=== PATIENT | female | born 2000 | race Two or more races ===

== ENCOUNTER 2022-10-31 14:38 | Emergency (ER) | payer OTHER, SELFPAY ==
--- NOTE | 2022-10-31 14:51 | ED.GENADULT ---
HPI - General Adult General Chief complaint: Upper Respiratory Infection Stated complaint: sorethorat,cough Time Seen by Provider: 10/31/22 14:51 Source: patient Mode of arrival: ambulatory Limitations: no limitations History of Present Illness HPI narrative: 22-year-old female patient presents to the [facility] with complaints of sore throat that started yesterday. Patient states she has had fevers, chills, body aches and sweats. Patient states that the sore throat has gotten worse. Denies any abdominal pain, nausea, vomiting or diarrhea. Related Data Allergies Allergy/AdvReac Type Severity Reaction Status Date / Time No Known Allergies Allergy Verified 10/31/22 14:58 Review of Systems Review of Systems: CONSTITUTIONAL: Positive fever, chills, or sweats. EYES: Denies visual changes, redness, or discharge. ENT: Denies rhinorrhea, congestion, positive sore throat, or otalgia. CARDIOVASCULAR: Denies chest pain, palpitations, or edema. RESPIRATORY: Denies cough or dyspnea. GASTROINTESTINAL: Denies abdominal pain, nausea, vomiting, or diarrhea. GENITOURINARY: Denies dysuria or hematuria. SKIN: Denies rash or itching. MUSCULOSKELETAL: Denies back pain, joint pain, or myalgia. NEUROLOGIC: Denies headache, numbness, or weakness. PSYCHIATRIC: Denies anxiety or depression. [facility] Past Medical History Medical History (Updated 10/31/22 @ 15:22 by CARLOS Paulson) No significant past medical history Comments At the time of my signature I agree with nursing past medical history, surgical, social, and family history. There is no relevant family history pertinent to the presenting complaint. Exam Narrative: GENERAL: Well-appearing, well-nourished, and in no acute distress. HEAD: Normocephalic, atraumatic. EYES: PERRLA and EOMI. ENT: Nares clear, no rhinorrhea or epistaxis. Mucous membranes moist. posterior pharynx with 3+ tonsil enlargement and white exudate present on bilateral sides. NECK: Supple. No lymphadenopathy CHEST: Clear to auscultation. No respiratory distress. HEART: Regular rate and rhythm. No murmur heard. Normal peripheral pulses. ABDOMEN: Soft, nontender, nondistended, normal active bowel sounds. EXTREMITIES: Normal range of motion. No edema. SKIN: Warm, dry, no rash. NEURO: No focal deficits. Alert and oriented x3. Course Course Level of Care: Express Care Visit Vital Signs Vital signs: Vital Signs Temperature 37.1 C 10/31/22 14:58 Pulse Rate 132 H 10/31/22 14:58 Respiratory Rate 18 10/31/22 14:58 Blood Pressure 115/73 10/31/22 14:58 Pulse Oximetry 100 10/31/22 14:58 Oxygen Delivery Room Air 10/31/22 14:58 Temperature 37.1 C 10/31/22 14:58 Pulse Rate 132 H 10/31/22 14:58 Respiratory Rate 18 10/31/22 14:58 Blood Pressure 115/73 10/31/22 14:58 Pulse Oximetry 100 10/31/22 14:58 Oxygen Delivery Room Air 10/31/22 14:58 Vital signs reviewed Medical Decision Making MDM Narrative Medical decision making narrative: Plan care for patient is to discharge home with oral antibiotics for exudate of tonsillitis. Patient's strep was negative however given her symptoms I think is most likely that she will need antibiotics. No culture sent at this time. Differential Diagnosis Differential Diagnosis: differential diagnosis: Viral pharyngitis, pharyngitis, group A strep, infectious mononucleosis, gonococcal pharyngitis, exudative pharyngitis, oral candidiasis. Chronic allergies, postnasal drip, GERD, abscess formation, but glottitis, retropharyngeal abscess formation, or airway obstruction. Vital Signs Vital Signs: Vital Signs Temperature 37.1 C 10/31/22 14:58 Pulse Rate 132 H 10/31/22 14:58 Respiratory Rate 18 10/31/22 14:58 Blood Pressure 115/73 10/31/22 14:58 Pulse Oximetry 100 10/31/22 14:58 Oxygen Delivery Room Air 10/31/22 14:58 Temperature 37.1 C 10/31/22 14:58 Pulse Rate 132 H 10/31/22 14:58 Respiratory Rate 18 0
[2022-10-31 14:58] VITALS: BP 115/73; PULSE 132; RESP 18; TEMP 37.1; O2SAT 100
== END 2022-10-31 15:20 | disposition home or self-care (01) ==
PROVIDERS: Emergency Provider Nurse Practitioner Family
DX: J03.90 Acute tonsillitis, unspecified (principal)
CPT/HCPCS: 87880; 99203; G0463

== ENCOUNTER 2022-11-23 20:54 | Emergency (ER) | payer OTHER, SELFPAY ==
--- NOTE | ~2022-11-23 | XR_ITS ---
EXAMINATION: XR chest 2V DATE: 11/23/2022 22:24 INDICATION: Chest pain TECHNIQUE: PA and lateral views of the chest are obtained. COMPARISON: None available FINDINGS: The lungs are free of acute opacities. No pleural effusion or pneumothorax. The cardiomedia stinal silhouette is normal. The visualized bones and soft tissues are unremarkable. IMPRESSION: 1. No acute cardiopulmonary abnormality. Reviewed, dictated and finalized at location L.
--- NOTE | 2022-11-23 20:55 | ECG_ITS ---
Measurements Intervals [place] Rate: 77 P: 53 VA: 164 QRS: 83 QRSD: 94 T: 43 QT: 380 QTc: 431 Interpretive Statements SINUS RHYTHM NO PREVIOUS ECG AVAILABLE FOR COMPARISON Electronically Signed On 11-24-2022 15:57:15 CDT by Efrem Salmeron M.D.
[2022-11-23 21:07] VITALS: BP 127/76; PULSE 96; RESP 18; TEMP 37.1; O2SAT 98
[2022-11-23 21:30] LABS: Basophils Absolute Auto 0.1 K/mm3 (0.0-0.1); Basophils Percent Auto 0.5 % (0.2-1.2); Eosinophils Percent Auto 10.5 % (0-4.4); Hematocrit 41.3 % (37.0-47.0); Hemoglobin 14.1 g/dL (12.0-15.0); Immature Granulocyte Absolute 0.02 K/mm3 (0.00-0.031); Immature Granulocyte Percent A 0.2 % (0-0.5); Lymphocytes Absolute Auto 3.03 K/mm3 (0.9-3.2); Lymphocytes Percent Auto 33.2 % (18.3-44.2); Mean Corpuscular HGB Conc 34.1 g/dl (32-36); Mean Corpuscular Hemoglobin 30.7 pg (26-34); Mean Corpuscular Volume 89.8 fl (80-100); Mean Platelet Volume 9.3 fl (7.4-10.4); Monocytes Absolute Auto 0.7 K/mm3 (0.1-0.6); Monocytes Percent Auto 7.5 % (2.6-8.5); Neutrophils Absolute Auto 4.4 K/mm3 (1.3-6.7); Neutrophils Percent Auto 48.1 % (45.5-73.1); Platelet Count Result 305 k/mm3 (150-375); Red Cell Distribution Width 11.9 % (11.5-14.5); White Blood Count 9.1 K/mm3 (4.5-10.0)
[2022-11-23 21:41] LABS: Alanine Aminotransferase 21 U/L (6-35); Albumin Level 4.7 g/dL (3.5-5.1); Alkaline Phosphatase 51 U/L (38-126); Anion Gap 9 mmol/L (8-16); Aspartate Amino Transferase 25 U/L (14-36); Bilirubin,Total 0.6 mg/dL (0.2-1.3); Blood Urea Nitrogen 11 mg/dL (7-17); Calcium 8.9 mg/dL (8.4-10.2); Carbon Dioxide 27 mmol/L (22-30); Chloride 103 mmol/L (98-107); Estimated CRCL calculation 91 ml/min; Estimated Glomerular Filt Rate > 60; Glucose 98 mg/dL (65-110); Lipase 76 U/L (23-300); Potassium 3.8 mmol/L (3.4-5.0); Sodium 139 mmol/L (137-145)
[2022-11-23 21:43] LABS: Prothrombin Time 12.8 Seconds (11.1-14.7)
[2022-11-23 21:44] LABS: Partial Thromboplastin Time 31.1 SECONDS (22.3-36.8)
[2022-11-23 21:52] LABS: Troponin I < 0.012 ng/mL (0.000-0.034)
[2022-11-24] VITALS (10 sets, daily range): BP systolic 117–122; BP diastolic 75–87; PULSE 69–87; RESP 10–19; TEMP 37.6; O2SAT 98–100
[2022-11-24 02:35] LABS: Troponin I < 0.012 ng/mL (0.000-0.034)
[2022-11-24] MEDS: BELLADONNA ALK/PHENOB ELIX 10 ML, MAG HYDROX/ALUMINUM HYD/SIMETH 30 ML, LIDOCAINE HCL 2... PO (05:49)
--- NOTE | 2022-11-24 05:51 | PC.NURSE ---
Spoke with Dr. Dean about aspirin for patient. Per Dr. Dean disregard aspirin.
--- NOTE | 2022-11-24 06:10 | ED.GENADULT ---
HPI - General Adult General Chief complaint: Chest Pain Stated complaint: L sided CP Time Seen by Provider: 11/24/22 05:34 History of Present Illness HPI narrative: Patient is a [id number]- female who presents emergency department with chief complaint of chest pain patient reports that she started having some pain in the left anterior chest around 1 PM patient states that she started having some episodes of epigastric discomfort that would radiate up into her chest. Patient states that when she was driving she felt as though she was getting lightheaded and decided to mold puller. Patient states that the pain has improved significantly since she is arrived in the emergency department is still there at this point. Patient reports no significant past medical history Related Data Home Medications Medication Instructions Recorded Confirmed Control 1 tablet PO DAILY 10/31/22 10/31/22 Allergies Allergy/AdvReac Type Severity Reaction Status Date / Time No Known Allergies Allergy Verified 10/31/22 14:58 Review of Systems Review of Systems: A 10 system review of systems was completed on the patient and is negative except for what is stated in the HPI. Nursing and ancillary documentation was reviewed. [facility] Past Medical History Medical History No significant past medical history Exam Narrative: GENERAL: Well-appearing, well-nourished, and in no acute distress. HEAD: Normocephalic, atraumatic. EYES: PERRLA and EOMI. ENT: Nares clear, no rhinorrhea or epistaxis. Mucous membranes moist. NECK: Supple. CHEST: Clear to auscultation. No respiratory distress. HEART: Regular rate and rhythm. No murmur heard. Normal peripheral pulses. ABDOMEN: Soft, nontender, nondistended, normal active bowel sounds. EXTREMITIES: Normal range of motion. No edema. SKIN: Warm, dry, no rash. NEURO: No focal deficits. Alert and oriented x3. PSYCH: Normal mood and affect. Course Vital Signs Vital signs: Vital Signs Temperature 37.1 C 11/23/22 21:07 Pulse Rate 96 11/23/22 21:07 Respiratory Rate 18 11/23/22 21:07 Blood Pressure 127/76 11/23/22 21:07 Pulse Oximetry 98 11/23/22 21:07 Oxygen Delivery Room Air 11/23/22 21:07 Temperature 37.6 C H 11/24/22 04:53 Pulse Rate 79 11/24/22 05:46 Respiratory Rate 10 L 11/24/22 05:46 Blood Pressure 122/83 11/24/22 05:15 Pulse Oximetry 100 11/24/22 05:46 Oxygen Delivery Room Air 11/24/22 04:49 Medical Decision Making MDM Narrative Medical decision making narrative: Differential diagnosis includes gastroesophageal reflux disease, gastritis, ACS, angina EKG interpreted by me is sinus rhythm rate of [address] elevation or ST depression Laboratory studies were obtained which were within normal limits normal CBC normal set of electrolytes including liver enzymes troponin was negative for 2 sets lipase was normal. Chest x-ray showed no evidence of focal infiltrate or widened mediastinum. No evidence of pneumothorax. Patient received a GI cocktail in the emergency department and is feeling substantially better and her discomfort is almost completely resolved. Given the patient's age and risk factors patient has a heart score of 0 Patient will be discharged home started on a PPI and instructed to follow-up with her primary care provider Vital Signs Vital Signs: Vital Signs Temperature 37.1 C 11/23/22 21:07 Pulse Rate 96 11/23/22 21:07 Respiratory Rate 18 11/23/22 21:07 Blood Pressure 127/76 11/23/22 21:07 Pulse Oximetry 98 11/23/22 21:07 Oxygen Delivery Room Air 11/23/22 21:07 Temperature 37.6 C H 11/24/22 04:53 Pulse Rate 79 11/24/22 05:46 Respiratory Rate 10 L 11/24/22 05:46 Blood Pressure 122/83 11/24/22 05:15 Pulse Oximetry 100 11/24/22 05:46 Oxygen Delivery Room Air 11/24/22 04:49 Lab Data 11/23/22 21:24 11/23/22
== END 2022-11-24 06:39 | disposition home or self-care (01) ==
PROVIDERS: Emergency Provider Emergency Medicine
DX: R07.89 Other chest pain (principal)
CPT/HCPCS: 36415; 71046; 80053; 83690; 84484; 85025; 85610; 85730; 93005; 99284; A9270

== ENCOUNTER 2022-12-19 19:19 | Emergency (ER) | payer OTHER, SELFPAY ==
--- NOTE | 2022-12-19 19:27 | ED.GENADULT ---
HPI - General Adult General Chief complaint: Upper Respiratory Infection Stated complaint: . Time Seen by Provider: 12/19/22 19:27 Source: patient Mode of arrival: ambulatory Limitations: no limitations History of Present Illness HPI narrative: 22-year-old female patient presents to the [facility] with complaints of fever, left-sided lymph node swelling, fatigue and just overall not feeling well. [place] and was concerned about the lymph node swelling they states that they were not worried about it and that it would go away with time. Patient states that the next day she started spiking fevers however she states she started noticing symptoms about a week ago. Patient states she was diagnosed with strep about 2 months ago. Denies any abdominal pain, nausea, vomiting or diarrhea. Patient states she has been alternating Tylenol and ibuprofen to help keep the fever down. Related Data Home Medications Medication Instructions Recorded Confirmed Control 1 tablet PO DAILY 10/31/22 12/19/22 Allergies Allergy/AdvReac Type Severity Reaction Status Date / Time No Known Allergies Allergy Verified 12/19/22 19:44 Review of Systems Review of Systems: CONSTITUTIONAL: Positive fever, body aches and chills, positive sweats. EYES: Denies visual changes, redness, or discharge. ENT: Denies rhinorrhea, congestion, positive sore throat, positive bilateral otalgia. positive left-sided lymph node swelling and tenderness CARDIOVASCULAR: Denies chest pain, palpitations, or edema. RESPIRATORY: Denies cough or dyspnea. GASTROINTESTINAL: Denies abdominal pain, nausea, vomiting, or diarrhea. GENITOURINARY: Denies dysuria or hematuria. SKIN: Denies rash or itching. MUSCULOSKELETAL: Denies back pain, joint pain, or myalgia. NEUROLOGIC: Denies headache, numbness, or weakness. PSYCHIATRIC: Denies anxiety or depression. [facility] Past Medical History Medical History No significant past medical history Comments At the time of my signature I agree with nursing past medical history, surgical, social, and family history. There is no relevant family history pertinent to the presenting complaint. Exam Narrative: GENERAL: ill-appearing, well-nourished, and in no acute distress. patient is warned of the touch and sweaty. HEAD: Normocephalic, atraumatic. EYES: PERRLA and EOMI. ENT: Nares clear, no rhinorrhea or epistaxis. Mucous membranes moist. posterior pharynx with 2 to 3+ tonsillar enlargement, erythema and white exudates noted on bilateral sides. NECK: Supple. Bilateral Cervical lymphadenopathy CHEST: Clear to auscultation. No respiratory distress. HEART: Regular rate and rhythm. No murmur heard. Normal peripheral pulses. ABDOMEN: Soft, nontender, nondistended, normal active bowel sounds. EXTREMITIES: Normal range of motion. No edema. SKIN: Warm, dry, no rash. NEURO: No focal deficits. Alert and oriented x3. Course Course Level of Care: Express Care Visit Vital Signs Vital signs: Vital Signs Temperature 37.1 C 12/19/22 19:34 Pulse Rate 134 H 12/19/22 19:34 Respiratory Rate 18 12/19/22 19:34 Blood Pressure 124/80 12/19/22 19:34 Pulse Oximetry 97 12/19/22 19:34 Oxygen Delivery Room Air 12/19/22 19:34 Temperature 37.1 C 12/19/22 19:34 Pulse Rate 134 H 12/19/22 19:34 Respiratory Rate 18 12/19/22 19:34 Blood Pressure 124/80 12/19/22 19:34 Pulse Oximetry 97 12/19/22 19:34 Oxygen Delivery Room Air 12/19/22 19:34 Vital signs reviewed. Medical Decision Making MDM Narrative Medical decision making narrative: notified patient that due to her exam it does appear that she has an obvious stroke strep throat infection. We will discharge her home with oral antibiotics for the infection she needs to continue taking the Tylenol and Motrin for pain and fevers. Patient verb
[2022-12-19 19:34] VITALS: BP 124/80; PULSE 134; RESP 18; TEMP 37.1; O2SAT 97
== END 2022-12-19 19:49 | disposition home or self-care (01) ==
PROVIDERS: Emergency Provider Nurse Practitioner Family
DX: J02.9 Acute pharyngitis, unspecified (principal)
CPT/HCPCS: 99213; G0463

== ENCOUNTER 2022-12-22 09:38 | Inpatient (IN) | payer OTHER, SELFPAY ==
[2022-12-22] VITALS (45 sets, daily range): BP systolic 93–139; BP diastolic 51–89; PULSE 92–129; RESP 13–29; TEMP 36.9–37.4; O2SAT 97–100; BMI 27.0
--- NOTE | ~2022-12-22 | XR_ITS ---
EXAMINATION: XR chest 1V portable DATE: 12/22/2022 12:10 INDICATION: Cough. Fever. TECHNIQUE: A single frontal view of the chest was obtained. COMPARISON: Chest 2 views 11/23/2022 FINDINGS: The chest demonstrates clear lungs without pneumonia, pleural effusion, or pneumothorax. Th e heart size is normal. IMPRESSION: 1. No acute cardiopulmonary disease. Reviewed, dictated and finalized at location A.
[2022-12-22 10:35] LABS: Influenza A QL RT-PCR Negative (Negative); Influenza B QL RT-PCR Negative (Negative); SARS-CoV-2 RNA PCR Negative (Negative)
[2022-12-22] MEDS: KETOROLAC 30 MG/ML VIAL (*BKC) IV PUSH (11:54)
[2022-12-22] MEDS: PROCHLORPERAZINE EDISYLATE 10 MG/2 ML VIAL IV PUSH (11:54)
[2022-12-22] MEDS: diphenhydrAMINE HCl INJ 50 MG/ML VIAL 25 MG IV PUSH (11:55)
[2022-12-22] MEDS: SODIUM CHLORIDE 0.9% IV 1,000 ML 999 ML IV CONT ×2 (11:55→13:44)
[2022-12-22 12:13] LABS: Basophils Percent Auto 0.3 % (0.2-1.2); Hematocrit 37.5 % (37.0-47.0); Hemoglobin 12.7 g/dL (12.0-15.0); Immature Granulocyte Absolute 0.08 K/mm3 (0.00-0.031); Immature Granulocyte Percent A 0.5 % (0-0.5); Lymphocytes Absolute Auto 1.35 K/mm3 (0.9-3.2); Lymphocytes Percent Auto 8.8 % (18.3-44.2); Mean Corpuscular HGB Conc 33.9 g/dl (32-36); Mean Corpuscular Hemoglobin 29.9 pg (26-34); Mean Corpuscular Volume 88.2 fl (80-100); Mean Platelet Volume 9.3 fl (7.4-10.4); Monocytes Absolute Auto 1.3 K/mm3 (0.1-0.6); Monocytes Percent Auto 8.6 % (2.6-8.5); Neutrophils Absolute Auto 12.5 K/mm3 (1.3-6.7); Neutrophils Percent Auto 81.8 % (45.5-73.1); Platelet Count Result 231 k/mm3 (150-375); Red Blood Count 4.25 M/mm3 (4.2-5.4); Red Cell Distribution Width 11.7 % (11.5-14.5); White Blood Count 15.3 K/mm3 (4.5-10.0)
[2022-12-22 12:16] LABS: Lactic Acid Reflex 0.8 mmol/L (0.7-2.0); Lipase 70 U/L (23-300)
[2022-12-22 12:17] LABS: Alanine Aminotransferase 19 U/L (6-35); Albumin Level 4.1 g/dL (3.5-5.1); Alkaline Phosphatase 57 U/L (38-126); Anion Gap 7 mmol/L (8-16); Aspartate Amino Transferase 21 U/L (14-36); Bilirubin,Total 0.7 mg/dL (0.2-1.3); Blood Urea Nitrogen 5 mg/dL (7-17); Calcium 8.3 mg/dL (8.4-10.2); Carbon Dioxide 26 mmol/L (22-30); Chloride 103 mmol/L (98-107); Estimated CRCL calculation 102 ml/min; Estimated Glomerular Filt Rate > 60; Glucose 119 mg/dL (65-110); Potassium 3.9 mmol/L (3.4-5.0); Sodium 136 mmol/L (137-145)
[2022-12-22 12:17] LABS: Appearance Urine Clear (Clear); Bilirubin Urine Negative (Negative); Blood Urine Negative (Negative); Color Urine Yellow (Yellow); Glucose Urine UA Negative (Negative); Ketones Urine Negative (Negative); Leukocyte Esterase Ur Negative LEU/UL (Negative); Nitrate Urine Negative (Negative); Protein Urine Negative (Negative); Specific Grav Ur 1.006 (1.001-1.035); Urobilinogen Urine 0.2 mg/dL (<2.0)
[2022-12-22 12:19] LABS: Monoscreen Negative (Negative); Negative Monotest Control Negative (Negative); Positive Monotest Control Positive (Positive)
[2022-12-22 12:31] LABS: Strep Group A RT-PCR NOT DETECTED (Negative)
[2022-12-22 12:32] LABS: Add Urine Microscopic? NO
--- NOTE | 2022-12-22 13:15 | ED.FEVER ---
HPI - Fever General Chief Complaint: Fever <Rosette Potter PA-C - Last Filed: 12/22/22 19:06> Stated Complaint: high HR <ZAFAR Upton Last Filed: 12/22/22 19:06> Time Seen by Provider: 12/22/22 11:05 <Rosette Potter PA-C - Last Filed: 12/22/22 19:06> History of Present Illness HPI Narrative: 22-year-old female who reports to the emergency department for evaluation of tachycardia, fever, sore throat, frontal headache and an enlarged lymph node to the left anterior aspect of her neck. Pt states he is ago, she noticed a lump to the left anterior aspect of her neck but was feeling fine. States 2 days later, her heart rate increased to the 120s, she then went to her primary care provider for evaluation, did not receive a dx per patient, and was then sent home. Patient reports 3 days ago, she went to a local urgent care and was given Augmentin for pharyngitis which she has been taking since. States yesterday, her heart rate went up to the 130s therefore she went to [facility] and had a full work-up and CT scan of the neck and received IV antibiotics. Patient was discharged home with a diagnosis of lymphadenitis, prescribed steroids and [place]. Patient states she has not filled her prescriptions today but came to [place] due to a heart rate in the 120s this morning. Patient reports she talk to the nursing hotline who advised her to come to the emergency department for evaluation. She reports initial growth of the lymph node in her neck last week, however it has not grown in the last few days. She reports pain with swallowing, fatigue, fevers ranging from 100-103, mild intermittent cough. She denies difficulty breathing, chest pain, SOB, n/v/d, hemoptysis. <ZAFAR Upton Last Filed: 12/22/22 19:06> Related Data Home Medications: Home Medications Medication Instructions Recorded Confirmed Control 1 tablet PO DAILY 10/31/22 12/19/22 <ZAFAR Upton Last Filed: 12/22/22 19:06> Allergies/Adverse Reactions: Allergies Allergy/AdvReac Type Severity Reaction Status Date / Time No Known Allergies Allergy Verified 12/22/22 18:41 <Rosette Potter PA-C - Last Filed: 12/22/22 19:06> Review of Systems Review of Systems: CONSTITUTIONAL: Denies fever, chills EYES: Denies visual changes, redness, or discharge. ENT: See HPI CARDIOVASCULAR: Denies chest pain, palpitations, or edema. RESPIRATORY: Denies cough or dyspnea. GASTROINTESTINAL: Denies abdominal pain, nausea, vomiting, or diarrhea. GENITOURINARY: Denies dysuria or hematuria. SKIN: Denies rash or itching. MUSCULOSKELETAL: Denies back pain, joint pain, or myalgia. NEUROLOGIC: Denies headache, numbness, dizziness, or weakness. PSYCHIATRIC: Denies anxiety or depression. <Rosette Potter PA-C - Last Filed: 12/22/22 19:06> [facility] Past Medical History Medical History: Medical History (Updated 12/22/22 @ 23:17 by Chely Nice PA-C) No significant past medical history <Rosette Potter PA-C - Last Filed: 12/22/22 19:06> Surgical History Surgical History: Surgical History (Updated 12/22/22 @ 23:14 by Chely Nice PA-C) No history of previous surgery <Rosette Potter PA-C - Last Filed: 12/22/22 19:06> Family History Family History: Family History Grandparent Cancer <Rosette Potter PA-C - Last Filed: 12/22/22 19:06> Social History Social History: Social History (Updated 12/22/22 @ 23:15 by Chely Nice PA-C) Social History: Surrogate medical decision maker: Kane Valadez, father. Code status: Full code. Smoking status: Never smoker Alcohol intake: never Substance use: never Substance use type: does not use Lack of Transportation: No Lack of Food: Never True Current Housing: I Have Housing Concerned About Future Housing: No Difficulty Paying Gas/[place]
[2022-12-22] MEDS: AMPICILLIN SULB 3 GM/NS 100 ML 3 GM/100 ML VIAL IVPB ×3 (13:45→23:01)
--- NOTE | 2022-12-22 15:00 | ECG_ITS ---
Measurements Intervals [place] Rate: 120 P: [place]: 0 QRS: 114 QRSD: 89 T: 46 QT: 296 QTc: 419 Interpretive Statements SINUS TACHYCARDIA RIGHT AXIS DEVIATION ABNORMAL ECG COMPARED TO ECG 11/23/2022 21:30:05 SINUS TACHYCARDIA NOW PRESENT RIGHT AXIS DEVIATION NOW PRESENT Electronically Signed On 12-22-2022 16:26:49 CDT by Wellington Milton D.O.
--- NOTE | 2022-12-22 17:38 | WPDCN ---
Assessment and Plan Assessment and plan (1) Acute tonsillitis: Qualifiers: Pharyngitis/tonsillitis etiology: unspecified etiology Qualified Code(s): J03.90 - Acute tonsillitis, unspecified Code(s): J03.90 - Acute tonsillitis, unspecified Status: Acute Assessment and Plan: Okay for diet. Would trend white count. Consider 2 more doses of IV Decadron. IV Unasyn clindamycin. If the patient fails to improve the next [address] scan of neck with contrast (2) Acute lymphadenitis: Code(s): L04.9 - Acute lymphadenitis, unspecified Status: Acute HPI Data of Consult Date/Time: 12/22/22 17:38 Primary Care Provider: [facility] Consult Narrative Narrative: Kely Valadez is a 22 year old female With several days of tachycardia fever left-sided lymphadenopathy. CT reports from a from yesterday will 6 cm lymph node no identifiable abscess. Patient feels slightly better today still tachycardic in the ER she has received IV Unasyn and IV Decadron 10 mg. Presents for further evaluation treatment white count elevated. Down to 15 I believe from 18. Review of Systems Review of Systems: All systems reviewed & are unremarkable except as noted in HPI and below PMFSH Past Medical History Medical History No significant past medical history Meds Home Medications and Allergies Home Medications Medication Instructions Recorded Confirmed Type Control 1 tablet PO DAILY 10/31/22 12/19/22 History amoxicillin 500 mg-potassium 1 tablet PO Q12H 10 days #20 tabs 12/19/22 Rx clavulanate 125 mg tablet (Augmentin) Allergies Allergy/AdvReac Type Severity Reaction Status Date / Time No Known Allergies Allergy Verified 12/19/22 19:44 Vital Signs Vital Signs - 24 hr 12/22/22 09:41 12/22/22 11:05 12/22/22 11:06 Temperature 37.2 C 37.4 C Pulse Rate 110 H 102 H 102 H Respiratory Rate 18 15 18 Blood Pressure 111/66 129/69 129/69 Pulse Oximetry 99 99 100 Oxygen Delivery Room Air 12/22/22 11:15 12/22/22 11:16 12/22/22 11:30 Temperature Pulse Rate 104 H 103 H 96 Respiratory Rate 16 17 17 Blood Pressure 120/77 Pulse Oximetry 100 100 99 Oxygen Delivery 12/22/22 11:31 12/22/22 11:45 12/22/22 11:47 Temperature Pulse Rate 104 H 107 H 100 Respiratory Rate 13 15 15 Blood Pressure 118/73 109/72 Pulse Oximetry 100 100 100 Oxygen Delivery 12/22/22 12:00 12/22/22 12:10 12/22/22 12:15 Temperature Pulse Rate 103 H 105 H 92 Respiratory Rate 15 20 18 Blood Pressure 112/65 Pulse Oximetry 100 100 100 Oxygen Delivery 12/22/22 12:16 12/22/22 12:30 12/22/22 12:31 Temperature Pulse Rate 97 102 H 101 H Respiratory Rate 19 17 14 Blood Pressure 111/71 99/58 L Pulse Oximetry 100 100 99 Oxygen Delivery 12/22/22 12:45 12/22/22 12:46 12/22/22 13:00 Temperature Pulse Rate 99 95 92 Respiratory Rate 17 15 17 Blood Pressure 101/52 L Pulse Oximetry 100 100 100 Oxygen Delivery 12/22/22 13:01 12/22/22 13:15 12/22/22 13:16 Temperature Pulse Rate 103 H 110 H 103 H Respiratory Rate 17 17 22 H Blood Pressure 93/51 L 108/58 L Pulse Oximetry 100 Oxygen Delivery 12/22/22 13:30 12/22/22 13:31 12/22/22 13:45 Temperature Pulse Rate 106 H 105 H 109 H Respiratory Rate 19 18 20 Blood Pressure 106/65 Pulse Oximetry 100 100 Oxygen Delivery 12/22/22 13:46 12/22/22 14:00 12/22/22 14:02 Temperature Pulse Rate 106 H 118 H 119 H Respiratory Rate 18 19 29 H Blood Pressure 119/68 Pulse Oximetry Oxygen Delivery 12/22/22 14:15 12/22/22 14:17 12/22/22 14:23 Temperature 36.9 C Pulse Rate 118 H 117 H 120 H Respiratory Rate 22 H 25 H 19 Blood Pressure 111/89 Pulse Oximetry 100 97 Oxygen Delivery Exam Narrative: Left-sided lymphadenopathy large. Mildly painful to palpation
--- NOTE | 2022-12-22 18:32 | ADMGEN ---
This patient, Kely Valadez, was admitted to [facility] Surg Room 327-01. Patient/family oriented to hospital policies and general routines including ID bracelet, bed and alarms, visiting hours, pain management, procedures, bathroom and other care routines, personal items, smoking policy, room service/diet, and visiting hours. Information on how to activate the Rapid Response Team has been discussed. Patient/Family are encouraged to report perceived risks to care and to ask questions if they do not understand what they are told or what they should do.
--- NOTE | 2022-12-22 19:06 | PM.IMHP ---
H&P: HPI History of Present Illness Date/Time: 12/22/22 18:00 Chief Complaint: Fever. Narrative: This is a very pleasant and previously healthy 22-year-old female who presented to the emergency department via private vehicle from home for evaluation of a fever. The patient provides the following history. Last Wednesday she noticed a nodule under the left jaw but was otherwise feeling fine. Two days thereafter it became tender and she noticed that her heart rate had increased into the 120s. She was seen by her doctor and the area was monitored. Several days thereafter she had increasing pain and had developed a fever and she was told to go to urgent care where she was prescribed Augmentin for pharyngitis. She has been trying to take the antibiotic however has not really been able to hold down much due to nausea and vomiting. Due to concerns for dehydration and ongoing fever, she was seen in the ED at [facility] yesterday where she reportedly had a neck CT which showed a 6 cm lymph node with no identifiable abscess. She was diagnosed with lymphangitis and was prescribed steroids and oxycodone. She continues to have tachycardia and had a fever to 103? F this morning and she came in for evaluation. WBC count was 15.3; rest of her labs were pretty unremarkable. She tested negative for group a strep, COVID, influenza, and mono. She was seen by Dr. Valenzuela (ENT) in the ED and he recommends admitting the patient for IV antibiotics and steroids. Review of Systems Review of Systems: Twelve systems were reviewed. She denies headache and neck ache. No sinus congestion. Her throat is a bit sore. She does not have any difficulties swallowing and is handling her secretions without issue. No shortness of breath or cough. Nausea and vomiting have improved. No diarrhea. Except as documented, all other systems were reviewed and are negative. [facility] Past Medical History Medical History (Updated 12/22/22 @ 23:17 by Chely Nice PA-C) No significant past medical history Surgical History Surgical History (Updated 12/22/22 @ 23:14 by Chely Nice PA-C) No history of previous surgery Family History Family History Grandparent Cancer Social History Social History (Updated 05/02/23 @ 23:15 by Chely Nice PA-C) Social History: Surrogate medical decision maker: Kane Valadez, father. Code status: Full code. Smoking status: Never smoker Alcohol intake: never Substance use: never Substance use type: does not use Lack of Transportation: No Lack of Food: Never True Current Housing: I Have Housing Concerned About Future Housing: No Difficulty Paying Gas/Electric Bills: No Difficulty Paying for Meds: No Currently Unemployed: No Education: High School Diploma/GED Difficulty w/ Childcare or Family Care: No Additional living arrangements comments: Lives in [place]. Additional occupation/education comments: [employer]. Spiritual care concerns: No Meds Home Medications and Allergies Home Medications Medication Instructions Recorded Confirmed Type Control 1 tablet PO DAILY 10/31/22 12/19/22 History Allergies Allergy/AdvReac Type Severity Reaction Status Date / Time No Known Allergies Allergy Verified 12/22/22 18:41 Vital Signs Vital Signs - 24 hr 12/22/22 09:41 12/22/22 11:05 12/22/22 11:06 Temperature 98.9 F 99.4 F Pulse Rate 110 H 102 H 102 H Respiratory Rate 18 15 18 Blood Pressure 111/66 129/69 129/69 Pulse Oximetry 99 99 100 Oxygen Delivery Room Air 12/22/22 11:15 12/22/22 11:16 12/22/22 11:30 Temperature Pulse Rate 104 H 103 H 96 Respiratory Rate 16 17 17 Blood Pressure 120/77 Pulse Oximetry 100 100 99 Oxygen Delivery 12/22/22 11:31 12/22/22 11:45 12/22/22 11:47 Temperature Pulse Rate 104 H 107 H 100 Respiratory Rate 13 15 15 Blood Pressure 118/73 109/7
[2022-12-22] MEDS: DEXAMETHASONE SOD PHOS INJ 4 MG/ML VIAL 8 MG IV PUSH (22:58)
[2022-12-23 05:25] VITALS: BP 113/60; PULSE 91; RESP 16; TEMP 36.6; O2SAT 97
[2022-12-23] MEDS: AMPICILLIN SULB 3 GM/NS 100 ML 3 GM/100 ML VIAL IVPB ×2 (05:37→12:21)
[2022-12-23] MEDS: DEXAMETHASONE SOD PHOS INJ 4 MG/ML VIAL 8 MG IV PUSH (06:09)
[2022-12-23 06:28] LABS: Basophils Percent Auto 0.1 % (0.2-1.2); Hematocrit 38.6 % (37.0-47.0); Hemoglobin 13.3 g/dL (12.0-15.0); Immature Granulocyte Absolute 0.15 K/mm3 (0.00-0.031); Lymphocytes Absolute Auto 1.02 K/mm3 (0.9-3.2); Mean Corpuscular HGB Conc 34.5 g/dl (32-36); Mean Corpuscular Hemoglobin 30.6 pg (26-34); Mean Corpuscular Volume 88.7 fl (80-100); Mean Platelet Volume 9.5 fl (7.4-10.4); Monocytes Absolute Auto 0.4 K/mm3 (0.1-0.6); Monocytes Percent Auto 2.9 % (2.6-8.5); Neutrophils Absolute Auto 13.1 K/mm3 (1.3-6.7); Platelet Count Result 265 k/mm3 (150-375); Red Blood Count 4.35 M/mm3 (4.2-5.4); Red Cell Distribution Width 11.9 % (11.5-14.5); White Blood Count 14.7 K/mm3 (4.5-10.0)
[2022-12-23 06:48] LABS: Anion Gap 8 mmol/L (8-16); Blood Urea Nitrogen 8 mg/dL (7-17); Calcium 8.3 mg/dL (8.4-10.2); Carbon Dioxide 24 mmol/L (22-30); Chloride 107 mmol/L (98-107); Estimated CRCL calculation 156 ml/min; Estimated Glomerular Filt Rate > 60; Glucose 149 mg/dL (65-110); Magnesium 2.5 mg/dL (1.6-2.3); Potassium 3.9 mmol/L (3.4-5.0); Sodium 139 mmol/L (137-145)
[2022-12-23 14:00] VITALS: BP 119/70; PULSE 98; RESP 16; TEMP 36.3; O2SAT 99
--- NOTE | 2022-12-23 16:21 | PM.DS ---
DS: Admitting Diagnosis Discharge Date 12/23/22 Admitting Diagnosis fever DS: Discharge Diagnosis Discharge Diagnosis (1) Sepsis: Code(s): A41.9 - Sepsis, unspecified organism Status: Acute Assessment and Plan: Clinically the patient meets sepsis criteria with fever, tachycardia, and leukocytosis in the setting of infection. Lactic acid level is within normal limits. Blood pressures have been stable. Blood cultures have been obtained and are pending. (2) Acute lymphadenitis: Code(s): L04.9 - Acute lymphadenitis, unspecified Status: Acute Assessment and Plan: Dr. Valenzuela recommends dexamethasone q8 hours x3. (3) Acute tonsillitis: Qualifiers: Pharyngitis/tonsillitis etiology: unspecified etiology Qualified Code(s): J03.90 - Acute tonsillitis, unspecified Code(s): J03.90 - Acute tonsillitis, unspecified Status: Acute Assessment and Plan: Continue Unasyn started in the ED. Throat culture ordered. Plan Medical decision making narrative ? History obtained from: Patient. ? History from independent sources: None. ? External chart review: N/A ? New problems addressed: Tonsillitis, lymphangitis, sepsis. ? Chronic illnesses addressed: None. ? Independent interpretation of studies: Labs, imaging, EKG, and all reports were personally reviewed. ? Diagnostic tests considered but not ordered: None. ? Shared decision making: Findings were reviewed and discussed with the patient, including plans for further workup and treatment options. Questions solicited and answered to satisfaction. Patient agrees with current plan of care. DS: Summary Hospital Course Hospital Course: 22-year-old female with no past medical history presenting with a fever and left jaw discomfort. She was found to have acute lymphadenitis and ENT was consulted. Source was thought to be acute tonsillitis. ENT was consulted and recommended dexamethasone and Unasyn. Symptoms improved significantly and she was discharged on oral medications. See above and med rec for details. Time Spent with Patient Time attestation: Total time spent providing and/or coordinating discharge services: Exam Narrative: General: Mildly ill-appearing female sitting up in bed. Weight: 83 kg. BMI: 27.0. HEENT: PERRL, EOMI. Sclera anicteric. Oral mucosa moist. Tonsils are enlarged and erythematous with some exudates. Clinically there is no evidence of peritonsillar abscess. She has a large, tender mass under the left jaw without warmth or erythema. Neck: Supple. [place]oddy lymphadenopathy. Respiratory: Lungs are clear to auscultation bilaterally. Cardiovascular: Tachycardic with normal S1-S2. Gastrointestinal: Abdomen is soft, nontender, and nondistended with positive bowel sounds. Skin: Warm and dry. No rash or lesions on limited exam. Extremities: No cyanosis, clubbing, or edema. Radial and pedal pulses intact. Neurological: Alert. Cranial nerves 2-12 are grossly intact. No gross focal deficits to casual conversation. Psychiatric: Pleasant and cooperative with normal mood and affect. Judgment and insight intact. DS: Data Data Completed and Pending Labs on day of discharge: Labs from last 24 hours 12/23/22 12/22/22 06:08 17:48 WBC 14.7 H RBC 4.35 Hgb 13.3 Hct 38.6 MCV 88.7 MCH 30.6 MCHC 34.5 RDW 11.9 Plt Count 265 MPV 9.5 Immature Gran % (Auto) 1.0 H Neut % (Auto) 89.0 H Lymph % (Auto) 7.0 L [place] % (Auto) 2.9 Eos % (Auto) 0.0 Baso % (Auto) 0.1 L Lymph # (Auto) 1.02 [place] # (Auto) 0.4 Eos # (Auto) 0.0 Baso # (Auto) 0.0 Abs Immat Gran (auto) 0.15 H Absolute Neuts (auto) 13.1 H Absolute Nucleated RBC 0.0 Nucleated RBC % 0.0 Sodium 139 Potassium 3.9 Chloride 107 Carbon Dioxide 24 Anion Gap 8 BUN 8 Creatinine 0.60 L Estim Creat Clear Calc 156 Estimated GFR > 60 Glucose 149 H Calcium 8.3 L Magnesium 2.5 H TSH (R
== END 2022-12-23 18:15 | disposition home or self-care (01) | DRG 872 ==
LOC: ANHED 17:21 → ANH3MEDSUR 17:47
PROVIDERS: Emergency Medicine; Physician Assistant; Admitting Provider Internal Medicine; Emergency Provider Physician Assistant; Visit Provider Student in an Organized Health Care Education/Training Program
DX: A41.9 Sepsis, unspecified organism (principal); J03.90 Acute tonsillitis, unspecified; L04.9 Acute lymphadenitis, unspecified; Z20.822 Contact with and (suspected) exposure to COVID-19
CPT/HCPCS: 36415; 71045; 80048; 80053; 81003; 81025; 83605; 83690; 83735; 84443; 85025; 86308; 87040; 87070; 87636; 87651; 93005; 96361; 96365; 96375; 96376; 99285; G0378; J0295; J0780; J1100; J1200; J1885; J7030